=== PATIENT | female | born 1985 | race Caucasian/White ===

== ENCOUNTER 2017-07-01 17:15 | Emergency (ER) | payer BC, OTHER ==
[~2017-07-01] VITALS: Ht 162.6 cm; Wt 66.0 kg
[2017-07-01] MEDS ORDERED: [UNRECOGNIZED DRUG - REMARK] (17:22)
[2017-07-01 18:40] LABS: BASOPHILS % 1.6 % (0.0-2.0); EOSINOPHILS % 0.5 % (0.0-5.0); HEMATOCRIT. 40.3 % (36.0-48.0); HEMOGLOBIN. 13.7 g/dL (12.0-16.0); LYMPHOCYTES % 30.8 % (20.0-50.0); MEAN CORPUSCULAR HEMOGLOBIN 33.3 pg (28.0-32.0); MEAN CORPUSCULAR VOLUME 98.1 fL (81.0-99.0); MEAN PLATELET VOLUME 7.4 fl (7.4-10.4); MONOCYTES % 6.1 % (2.0-8.0); PLATELET 246 x1000/uL (130-400); RED BLOOD CELL COUNT 4.11 mill/uL (4.2-5.4)
[2017-07-01 18:49] LABS: HCG SCREEN NEGATIVE
[2017-07-01 18:55] LABS: CARBON DIOXIDE 31 mEq/L (21-32); CHLORIDE 106 mEq/L (98-107)
[2017-07-01] MEDS ORDERED: SODIUM CHLORIDE 0.9% 1,000 ML IV ONE (19:00)
[2017-07-01 19:03] LABS: ETHANOL BLOOD 390 mg/dL
[2017-07-01 19:07] LABS: CLARITY URINE CLEAR (CLEAR); COLOR URINE YELLOW (YELLOW); GLUCOSE URINE NEGATIVE (NEGATIVE); KETONES URINE NEGATIVE (NEGATIVE); LEUKOCYTE ESTERASE URINE NEGATIVE (NEGATIVE); NITRITE URINE NEGATIVE (NEGATIVE); OCCULT BLOOD URINE 2+ (NEGATIVE); PH URINE 6.5 (4.5-8.0); PROTEIN URINE 3+ (NEGATIVE); SPECIFIC GRAVITY URINE 1.008 (1.005-1.030); UROBILINOGEN URINE 0.2 E.U./dL (0.2-1.0)
[2017-07-01 19:18] LABS: *AMPHETAMINES SCREEN URINE NEGATIVE (NEGATIVE); *BARBITURATES SCREEN URINE NEGATIVE (NEGATIVE); *BENZODIAZEPINES SCREEN URINE NEGATIVE (NEGATIVE); *COCAINE SCREEN URINE NEGATIVE (NEGATIVE); CANNABINOID URINE SCREEN NEGATIVE (NEGATIVE); METHADONE URINE SCREEN NEGATIVE (NEGATIVE); OPIATES URINE SCREEN NEGATIVE (NEGATIVE); PHENCYCLIDINE URINE SCREEN NEGATIVE (NEGATIVE)
[2017-07-01] MEDS ORDERED: KCL 10MEQ/50ML PREMIX 100 ML IV SCH (20:15)
[2017-07-01] MEDS ORDERED: POTASSIUM CHLORIDE 20MEQ TABLET SR PO ONE (20:15)
[2017-07-01 23:30] VITALS: BP 118/80
== END 2017-07-01 23:31 | disposition home or self-care (01) ==
LOC: ER 17:28
DX: E87.6 Hypokalemia (principal); F10.129 Alcohol abuse with intoxication, unspecified; R60.0 Localized edema; R56.9 Unspecified convulsions
CPT/HCPCS: 36415; 80053; 80305; 81001; 81025; 83880; 84703; 85025; 99284; G0482; J7040; Z7610; J3480; J7030

== ENCOUNTER 2019-07-10 23:24 | Emergency (ER) | payer BC, OTHER ==
[~2019-07-10] VITALS: Ht 175.3 cm; Wt 73.0 kg
[~2019-07-10 23:24] MED LIST: [UNRECOGNIZED DRUG - REMARK]
[2019-07-10 23:38] VITALS: BP 128/86
== END 2019-07-11 02:24 | disposition left against medical advice (07) ==
LOC: ER 23:24
DX: F10.10 Alcohol abuse, uncomplicated (principal); Z53.21 Procedure and treatment not carried out due to patient leaving prior to being seen by health care provider; Y90.9 Presence of alcohol in blood, level not specified